=== PATIENT | female | born 1970 | race African-American/Black ===

== ENCOUNTER 2021-11-28 17:28 | Observation (INO) | payer OTHER ==
[2021-11-28] MEDS ORDERED: NITROGLYCERIN SL TABS 0.4 MG TAB SUBLINGUAL STA (18:01)
[2021-11-28] MEDS ORDERED: ASPIRIN 81 MG PO STA (18:01)
--- NOTE | 2021-11-28 18:03 | ED ---
General Adult HPI - General Chief complaint: Chest Pain Stated complaint: Chest pain Time Seen by Provider: 11/28/21 17:44 Source: patient, RN notes reviewed Mode of arrival: wheelchair Limitations: no limitations - History of Present Illness Initial comments: Patient is a pleasant 51-year-old female presenting to the emergency department with concerns for chest discomfort. Symptoms have been present for a week. Patient does come from [place] for alcohol, cocaine and marijuana use. Discomfort feels like burning in the chest. No history of chronic similar symptoms previously. Patient did try some Tums a few days ago with some relief. - Related Data Allergies Allergy/AdvReac Type Severity Reaction Status Date / Time adhesive Allergy Rash/Hives Verified 11/28/21 17:36 ibuprofen [From Motrin] Allergy Unknown Verified 11/28/21 17:36 Review of Systems ROS Statement: Those systems with pertinent positive or pertinent negative responses have been documented in the HPI. ROS Other: All systems not noted in ROS Statement are negative. Constitutional: Denies: fever Eyes: Denies: eye pain ENT: Denies: ear pain Respiratory: Denies: dyspnea Cardiovascular: Reports: as per HPI, chest pain Endocrine: Denies: fatigue Gastrointestinal: Denies: abdominal pain, nausea, vomiting Genitourinary: Denies: dysuria Skin: Denies: rash Neurological: Denies: weakness Past Medical History Past Medical History: Hypertension History of Any Multi-Drug Resistant Organisms: None Reported Past Surgical History: No Surgical Hx Reported Past Psychological History: Bipolar Smoking Status: Current every day smoker Past Alcohol Use History: Abuse, Daily, Heavy Past Drug Use History: Marijuana General Exam Limitations: no limitations General appearance: alert Head exam: Present: normocephalic Eye exam: Present: normal appearance Neck exam: Present: normal inspection Respiratory exam: Present: normal lung sounds bilaterally, chest wall tenderness (Mild sternal) Cardiovascular Exam: Present: regular rate, normal rhythm Expanded Peripheral pulses: 2+: Radial (R), Radial (L), Posterior Tibialis (R), Posterior Tibialis (L), Dorsalis Pedis (R), Dorsalis Pedis (L) GI/Abdominal exam: Present: soft. Absent: tenderness Extremities exam: Present: normal inspection. Absent: pedal edema, calf tenderness Neurological exam: Present: alert Psychiatric exam: Present: normal affect, normal mood Skin exam: Present: normal color Course Vital Signs 11/28/21 11/28/21 17:31 18:06 Temperature 98.5 F Pulse Rate 83 Pulse Rate [ 74 Radial] Respiratory 16 Rate Blood Pressure 126/79 O2 Sat by Pulse 100 Oximetry EKG Findings - EKG Comments: EKG Findings:: Sinus rhythm rate 60. AR 125. QRS 89. QT 4:30. QTC 431. Nor mal axis. LVH criteria. No acute ST change. Medical Decision Making - Medical Decision Making Patient reevaluated and updated. Case discussed with Dr. Schofield, who will admit covering hospital observation call, with cardiology consult - Lab Data Result diagrams: 11/28/21 18:05 11/28/21 18:05 Lab Results 11/28/21 11/28/21 11/28/21 Range/Units 18:05 18:05 18:05 WBC 5.6 (3.8-10.6) k/uL RBC 4.55 (3.80-5.40) m/uL Hgb 14.1 (11.4-16.0) gm/dL Hct 42.6 (34.0-46.0) % MCV 93.5 (80.0-100.0) fL MCH 30.9 (25.0-35.0) pg MCHC 33.0 (31.0-37.0) g/dL RDW 13.8 (11.5-15.5) % Plt Count 152 (150-450) k/uL MPV 9.1 Neutrophils % 62 % Lymphocytes % 28 % Monocytes % 6 % Eosinophils % 2 % Basophils % 0 % Neutrophils # 3.5 (1.3-7.7) k/uL Lymphocytes # 1.6 (1.0-4.8) k/uL Monocytes # 0.3 (0-1.0) k/uL Eosinophils # 0.1 (0-0.7) k/uL Basophils # 0.0 (0-0.2) k/uL PT 10.3 (9.0-12.0) sec INR 0.9 (<1.2) APTT 22.9 (22.0-30.0) sec D-Dimer 0.45 (<0.60) mg/L FEU Sodium 139 (137-145) mmol/L Potassium 3.8 (3.5-5.1) mmol/L Chloride 101 (98-107) mmol/L Carbon Dioxide 31 H (22-30) mmol/L Anion Gap 7 mmol/L BUN 12 (7-17) mg/dL Creatinine 0.78 (0.52-1.04) mg/dL Est GFR (CKD-EPI)AfAm >90 (>60 ml/min/1.73 sqM) Est GFR (CKD-EPI)NonAf 88 (>60 ml/min/1.73 sqM) Glucose 93 (74-99) mg/dL Calcium 9.2 (8.4-10.2) mg/dL Magnesium 2.0 (1.6-2.3) mg/dL Total Bilirubin 0.2 (0.2-1.3) mg/dL AST 42 H (14-36) U/L ALT 28 (4-34) U/L Alkaline Phosphatase 122 (38-126) U/L Troponin I (0.000-0.034) ng/mL Total Protein 6.9 (6.3-8.2) g/dL Albumin 4.0 (3.5-5.0) g/dL Amylase 109 (30-110) U/L Lipase 173 (23-300) U/L 11/28/21 Range/Units 18:05 WBC (3.8-10.6) k/uL RBC (3.80-5.40) m/uL Hgb (11.4-16.0) gm/dL Hct (34.0-46.0) % MCV (80.0-100.0) fL MCH (25.0-35.0) pg MCHC (31.0-37.0) g/dL RDW (11.5-15.5) % Plt Count (150-450) k/uL MPV Neutrophils % % Lymphocytes % % Monocytes % % Eosinophils % % Basophils % % Neutrophils # (1.3-7.7) k/uL Lymphocytes # (1.0-4.8) k/uL Monocytes # (0-1.0) k/uL Eosinophils # (0-0.7) k/uL Basophils # (0-0.2) k/uL PT (9.0-12.0) sec INR (<1.2) APTT (22.0-30.0) sec D-Dimer (<0.60) mg/L FEU Sodium (137-145) mmol/L Potassium (3.5-5.1) mmol/L Chloride (98-107) mmol/L Carbon Dioxide (22-30) mmol/L Anion Gap mmol/L BUN (7-17) mg/dL Creatinine (0.52-1.04) mg/dL Est GFR (CKD-EPI)AfAm (>60 ml/min/1.73 sqM) Est GFR (CKD-EPI)NonAf (>60 ml/min/1.73 sqM) Glucose (74-99) mg/dL Calcium (8.4-10.2) mg/dL Magnesium (1.6-2.3) mg/dL Total Bilirubin (0.2-1.3) mg/dL AST (14-36) U/L ALT (4-34) U/L Alkaline Phosphatase (38-126) U/L Troponin I <0.012 (0.000-0.034) ng/mL Total Protein (6.3-8.2) g/dL Albumin (3.5-5.0) g/dL Amylase (30-110) U/L Lipase (23-300) U/L - Radiology Data Radiology results: image reviewed (Chest x-ray shows no acute process) Disposition Clinical Impression: Chest pain Disposition: ADMITTED IP TO THIS [facility] Is patient prescribed a controlled substance at d/c from ED?: No Referrals: Nonstaff,Physician [Primary Care Provider] - 1-2 days Time of Disposition: 19:09
[2021-11-28 18:32] LABS: ALT 28 U/L (4-34); AST 42 U/L (14-36); African American GFR (CKD) >90 (>60 ml/min/1.73 sqM); Alkaline Phosphatase 122 U/L (38-126); Amylase 109 U/L (30-110); Anion Gap 7 mmol/L; Blood Urea Nitrogen 12 mg/dL (7-17); Calcium 9.2 mg/dL (8.4-10.2); Carbon Dioxide 31 mmol/L (22-30); Chloride 101 mmol/L (98-107); Glucose 93 mg/dL (74-99); Lipase 173 U/L (23-300); Non-African American GFR(CKD) 88 (>60 ml/min/1.73 sqM); Potassium 3.8 mmol/L (3.5-5.1); Sodium 139 mmol/L (137-145); Total Bilirubin 0.2 mg/dL (0.2-1.3); Total Protein 6.9 g/dL (6.3-8.2)
[2021-11-28 18:36] LABS: Basophils % (A) 0 %; Eosinophils # (A) 0.1 k/uL (0-0.7); Eosinophils % (A) 2 %; HCT 42.6 % (34.0-46.0); HGB 14.1 gm/dL (11.4-16.0); Lymphocytes # (A) 1.6 k/uL (1.0-4.8); Lymphocytes % (A) 28 %; MCH 30.9 pg (25.0-35.0); MCV 93.5 fL (80.0-100.0); Mean Platelet Volume 9.1; Monocytes # (A) 0.3 k/uL (0-1.0); Monocytes % (A) 6 %; Neutrophils # (A) 3.5 k/uL (1.3-7.7); Neutrophils % (A) 62 %; Platelet Count 152 k/uL (150-450); RBC 4.55 m/uL (3.80-5.40); RDW 13.8 % (11.5-15.5); WBC 5.6 k/uL (3.8-10.6)
[2021-11-28 18:40] LABS: INR 0.9 (<1.2); Partial Thromboplastin Time 22.9 sec (22.0-30.0); Prothrombin Time 10.3 sec (9.0-12.0)
--- NOTE | 2021-11-28 19:00 | XR ---
EXAMINATION TYPE: XR chest 2V DATE OF EXAM: 11/28/2021 COMPARISON: NONE HISTORY: Pain TECHNIQUE: 2 views FINDINGS: Heart and mediastinum are normal. Lungs are clear. Diaphragm is normal. Bony thorax is inta ct. IMPRESSION: Normal chest.
[2021-11-28] MEDS ORDERED: NITROGLYCERIN SL TABS 0.4 MG TAB SUBLINGUAL PRN (19:11)
[2021-11-28] MEDS ORDERED: LORazepam 2 MG/ML INJ IV PRN (19:16)
[2021-11-29] MEDS ORDERED: LORazepam 2 MG/ML INJ IV PRN ×3 (02:35)
--- NOTE | 2021-11-29 02:42 | P.HPIM ---
History of Present Illness H&P Date: 11/28/21 Chief Complaint: chest pain 51-year-old femalein significant past medical history Patient admits to polysubstance abuse with alcohol and cocaine. Last use was 4 days ago she went to [place] today to help her with addiction however she started experiencing chest pain she described it as burning sensation in her chest not associated with any palpitations or dizziness she does report however some profuse sweating and shortness of breath . she was feeling nauseous but no vomiting. She denies any cardiac history or cardiac workup in the past. She denies any history of diabetes or hyperlipidemia or hypertension She does she does admit to tobacco smoking cocaine abuse and alcohol. She also reports some family history of coronary artery disease At home patient tried some Tums with slight relief In the ED pain was improved with nitro. Initial workup in the ED was unremarkable Review of Systems Pertinent positives as noted in HPI. All other systems were reviewed and are negative Past Medical History Past Medical History: Hypertension History of Any Multi-Drug Resistant Organisms: None Reported Past Surgical History: No Surgical Hx Reported Past Anesthesia/Blood Transfusion Reactions: No Reported Reaction Past Psychological History: Bipolar Smoking Status: Current every day smoker Past Alcohol Use History: Abuse, Daily, Heavy Past Drug Use History: Marijuana - Past Family History Family Family Medical History: Coronary Artery Disease (CAD) Medications and Allergies Home Medications Medication Instructions Recorded Confirmed Type No Known Home Medications 11/28/21 11/28/21 History Allergies Allergy/AdvReac Type Severity Reaction Status Date / Time adhesive Allergy Rash/Hives Verified 11/28/21 19:31 ibuprofen [From Motrin] AdvReac Abdominal Verified 11/28/21 19:31 Pain Physical Exam Vitals: Vital Signs Temp Pulse Pulse Pulse Resp BP BP 11/28/21 21:21 98.5 F 90 18 125/71 11/28/21 18:06 74 11/28/21 17:31 98.5 F 83 16 126/79 Pulse Ox 11/28/21 21:21 99 11/28/21 18:06 11/28/21 17:31 100 Intake and Output 11/28/21 11/28/21 11/29/21 14:59 22:59 06:59 Other: # Voids 1 Weight 56.245 kg Constitutional: No acute distress, conversant, pleasant Eyes: Anicteric sclerae, moist conjunctiva, Pupils equal round reactive to light ENMT: NC/AT Oropharynx clear, no erythema, or exudates Neck: Supple, no masses, or JVD No carotid bruits No thyromegaly Lungs: Clear to auscultation Clear to percussion Normal respiratory effort, no accessory muscle use Cardiovascular: Heart regular in rate and rhythm, No murmurs, gallops, or rubs No peripheral edema Abdominal: Soft Nontender, no guarding, rebound or rigidity Abdomen moving with respiration Normoactive bowel sounds No hepatomegaly, No splenomegaly No palpable mass No abdominal wall hernia noted Skin: Normal temperature, tone, texture, turgor No induration No subcutaneous nodules No rash, lesions No ulcers Extremities: No digital cyanosis No clubbing Pedal pulses intact and symmetrical Radial pulses intact and symmetrical No calf tenderness Psychiatric: Alert and oriented to person, place and time Appropriate affect fair judgement Neuro Muscles Strength 5/5 in all 4 extremities Sensation to light touch grossly present throughout Cranial nerves II-XII grossly intact No focal sensory deficits Lymphatics: no palpable cervical or supraclavicular , or inguinal lymph nodes Results CBC & Chem 7: 11/28/21 18:05 11/28/21 18:05 Labs: Abnormal Lab Results - Last 24 Hours (Table) 11/28/21 Range/Units 18:05 Carbon Dioxide 31 H (22-30) mmol/L AST 42 H (14-36) U/L Thrombosis Risk Factor Assmnt - Choose All That Apply Any of the Below Risk Factors Present?: Yes Each Factor Represents 1 point: Age 41-60 years Other Risk Factors: No Other congenital or acquired thrombophilia - If yes, enter type in comment: No Thrombosis Risk Factor Assessment Total Risk Factor Score: 1 Thrombosis Risk Factor Assessment Level: Low Risk Assessment and Plan Assessment: atypical chest pain rule out ACS EKG no acute changes CXR no acute pathology trops negative X2 vulnerability assessment analyst monitor vital signs ASA, cardiology consult A1c, lipid panel , TSH pain control Polysubstance abuse Patient counseled to quit cocaine monitored for alcohol withdrawal symptoms initiated on benzodiazepines per CIWA, thiamine, folic acid GI prophylaxis Protonix daily Dvt prophylaxis heparin subcu 3 times a day Full code
[2021-11-29] MEDS ORDERED: PANTOPRAZOLE 40 MG TABLET PO SCH (07:30)
[2021-11-29] MEDS: HEPARIN SODIUM,PORCINE/PF 5,000 UNIT/0.5 ML SYRINGE SQ SCH ×3 (08:07→16:04)
[2021-11-29] MEDS ORDERED: FOLIC ACID 1 MG TAB PO SCH (09:00)
[2021-11-29] MEDS ORDERED: ASPIRIN 325 MG TAB PO SCH (09:00)
[2021-11-29 09:59] LABS: Chol/HDL Ratio 1.54 Ratio; LDL Cholesterol,Calculated 48.4 mg/dL (0.0-131.0); VLDL Calculation 12.56 mg/dL (5.00-40.00)
--- NOTE | 2021-11-29 12:43 | CA ---
Transthoracic Echo Report Name: Sonali Cardenas Age: 51 Gender: F : 1970 Exam Date: 11/29/2021 10:10 Exam Location: [facility] Ht (in): 65 Wt (lb): 124 Ordering Physician: Diana Dolan Attending/Referring Phys: [employer] Ria Reed RDCS Procedure CPT: Indications: CP Cardiac Hx: Technical Quality: Good Contrast 1: Total Dose (mL): Contrast 2: Total Dose (mL): MEASUREMENTS (Male / Female) Normal Values 2D ECHO LV Diastolic Diameter PLAX 5.2 cm 4.2 - 5.9 / 3.9 - 5.3 cm LV Systolic Diameter PLAX 4.4 cm IVS Diastolic Thickness 1.3 cm 0.6 - 1.0 / 0.6 - 0.9 cm LVPW Diastolic Thickness 1.5 cm 0.6 - 1.0 / 0.6 - 0.9 cm LV Relative Wall Thickness 0.5 RV Internal Dim ED PLAX 3.0 cm LA Systolic Diameter LX 3.5 cm 3.0 - 4.0 / 2.7 - 3.8 cm LA Volume 57.3 cm??? 18 - 58 / 22 - 52 cm??? M-MODE Aortic Root Diameter MM 2.9 cm LA Systolic Diameter MM 3.4 cm LA Ao Ratio MM 1.2 MV E Point Septal Separation 1.0 cm AV Cusp Separation MM 1.6 cm DOPPLER MV Area PHT 3.2 cm??? Mitral E Point Velocity 42.7 cm/s Mitral A Point Velocity 71.8 cm/s Mitral E to A Ratio 0.6 MV Deceleration Time 235.9 ms MV E' Velocity 4.9 cm/s Mitral E to MV E' Ratio 8.7 FINDINGS Left Ventricle Left ventricular ejection fraction is estimated at 50%. Moderately increased left ventricular wall thickness. Right Ventricle Normal right ventricular size and function. Right Atrium Normal right atrial size. Left Atrium Mildly increased left atrial volume. Mitral Valve Structurally normal mitral valve. Mild mitral regurgitation. Aortic Valve Trileaflet aortic valve. Tricuspid Valve Structurally normal tricuspid valve. Mild tricuspid regurgitation. Pulmonic Valve Structurally normal pulmonic valve. Pericardium Normal pericardium. Aorta Normal size aortic root and proximal ascending aorta. CONCLUSIONS Concentric left ventricular hypertrophy with normal LV function Mild mitral regurgitation Previewed by: Dr. Dustin Zamarripa MD (Electronically Signed) Final Date: 29 November 2021 12:42
--- NOTE | 2021-11-29 13:08 | P.DS ---
Providers Date of admission: 11/28/21 19:11 Expected date of discharge: 11/29/21 Attending physician: Laura Kowalski MD Consults: 11/28/21 19:11 Consult Physician Urgent Consulting Provider: Bernard Morel Consult Reason/Comments: cp Do you want consulting provider notified?: Yes Primary care physician: Physician Nonstaff Hospital Course: Discharge Diagnosis: Atypical chest pain Polysubstance use disorder Hospital Course: 51-year-old female with no significant past medical history Patient admits to polysubstance abuse with alcohol and cocaine. Last use was 4 days ago she went to [place] today to help her with addiction however she started experiencing chest pain she described it as burning sensation in her chest not associated with any palpitations or dizziness she does report however some profuse sweating and shortness of breath . she was feeling nauseous but no vomiting. She denies any cardiac history or cardiac workup in the past. She denies any history of diabetes or hyperlipidemia or hypertension. The patient was admitted had EKG did not show any acute changes, her troponins were negative. Cardiology was consulted and obtained bedside echo show concentric left ventricular hypertrophy with normal LV function and mild mitral regurgitation. The patient is cleared for discharge from cardiology standpoint. Patient seen and examined at bedside. Vital signs reviewed and stable. General: [nontoxic], [no distress], [appears at stated age] Derm: [warm], [dry] Head: [atraumatic], [normocephalic], [symmetric] Eyes: [EOMI], [no lid lag], [anicteric sclera] Mouth: [no lip lesion], [mucus membranes moist] Cardiovascular: [S1S2 reg], [no murmur] Lungs: [CTA bilateral], [no rhonchi, no rales] , [no accessory muscle use] Abdominal: [soft], [ nontender to palpation], [no guarding], [no appreciable organomegaly] Ext: [no gross muscle atrophy], [no edema], [no contractures] Neuro: [ CN II-XI grossly intact], [no focal neuro deficits] Psych: [Alert], [oriented], [appropriate affect] A total of 90 minutes of time were spent preparing this complex discharge summary. Plan - Discharge Summary Discharge Rx Participant: No New Discharge Prescriptions: No Action No Known Home Medications Discharge Medication List No Known Home Medications 11/28/21 [History] Follow up Appointment(s)/Referral(s): Nonstaff,Physician [Primary Care Provider] - 1-2 days
[2021-11-29 16:04] VITALS: BP 150/73; PULSE 66; RESP 18; TEMP 98.5
[2021-11-29] MEDS ORDERED: THIAMINE 100 MG TAB PO SCH (17:30)
--- NOTE | 2021-11-29 21:50 | CONS ---
CONSULTATION This is a cardiology consultation note. CHIEF COMPLAINT: Chest pain. HISTORY OF PRESENT ILLNESS: Sonali is a 51-year-old lady with history of alcohol and drug abuse who is currently at the [facility]. She last used heroin a few days ago and complained of chest discomfort due to which she was sent to the emergency room at [facility] from where she got admitted to hospital. At the time of my evaluation, she appears comfortable at rest, free of chest pain, hemodynamically stable. EKG shows sinus rhythm without acute ST-T wave changes. She had 3 sets of cardiac enzymes that are all within normal limits. There is no prior history of coronary artery disease or congestive heart failure. I am going to obtain a 2D echo to assess her LV function, pericardium and the aortic root. If the LV function and wall motion are normal, I am going to ambulate her. If she is doing good, discharge her back to the [facility] and once she has completed her drug rehab, we should consider doing a stress test on her to evaluate for ischemic heart disease. PAST MEDICAL HISTORY: Negative for hypertension, diabetes, dyslipidemia. MEDICATIONS: None. ALLERGIES: To Motrin and adhesive tape. FAMILY HISTORY: Negative for premature coronary artery disease. SOCIAL HISTORY: Significant for EtOH abuse and drug abuse. The patient is currently going to [facility]. REVIEW OF SYSTEMS: 14 out of 14 review of systems has been performed, pertinence are as documented. PHYSICAL EXAMINATION: GENERAL: Comfortable at rest. VITAL SIGNS: Heart rate is 70 beats per minute, blood pressure is 150/80, respiratory rate is 16, O2 saturation is 97% on room air. NECK: There is no jugular venous distention. Carotid upstroke is normal. There is no bruit. CHEST: Exam reveals good air entry bilaterally. HEART: Exam reveals first and second heart sounds. No gallop. No murmur. No rub. ABDOMEN: Soft, nontender. EXTREMITIES: Examination of extremities did not reveal any edema. Peripheral pulses are felt. LABORATORY DATA: Labs showed a hemoglobin of 14.1, platelet count is 150. Potassium is 3.8, creatinine is 0.7. Troponins are negative. ASSESSMENT: 1. Precordial chest pain. 2. History of drug abuse. PLAN: We will review the echocardiogram. Once it is done, if that looks normal, she can be discharged back to the [facility] and once she has completed her rehab, she should arrange follow up through my office and I will consider an outpatient stress test. MMSANDRO / CARLOS: [id number] /
== END 2021-11-29 16:53 | disposition other institution (70) ==
LOC: EC 17:28 → 6NMEDSUR 19:11
PROVIDERS: ADMIT Internal Medicine; ATTEND Internal Medicine
DX: R07.89 Other chest pain (principal); R61 Generalized hyperhidrosis; R06.02 Shortness of breath; R11.0 Nausea; I34.0 Nonrheumatic mitral (valve) insufficiency; I11.9 Hypertensive heart disease without heart failure; F17.200 Nicotine dependence, unspecified, uncomplicated; Z82.49 Family history of ischemic heart disease and other diseases of the circulatory system; Z71.51 Drug abuse counseling and surveillance of drug abuser; F10.10 Alcohol abuse, uncomplicated; F14.10 Cocaine abuse, uncomplicated; F31.9 Bipolar disorder, unspecified; Z88.6 Allergy status to analgesic agent; Z91.09 Other allergy status, other than to drugs and biological substances
CPT/HCPCS: 99285; 36415; 93005; 93306; 85379; 80061; 80053; 82150; 83690; 83735; 84484 ×2; 85025; 85610; 85730; 71046; G0378 ×2